=== PATIENT | male | born 1960 | race Caucasian/White ===

== ENCOUNTER 2019-07-28 19:28 | Inpatient (IN) | payer SELFPAY ==
[2019-07-28 20:14] LABS: ABS Eosinophils 0.2 10^3/ul (0-0.6); ABS Lymphocytes 2.8 10^3/ul (1.0-4.8); ABS Monocytes 0.6 10^3/ul (0-0.8); ABS Neutrophils 3.7 10^3/ul (1.5-7.7); Eosinophil % 2.1 %; Hematocrit 44 % (42-52); Hemoglobin 15.3 g/dL (14.0-18.0); Lymphocyte % 38.7 %; Mean Corpuscular HGB Conc 35 g/dL (31-36); Mean Corpuscular Hemoglobin 34 pg (27-31); Mean Corpuscular Volume 98 fL (80-94); Mean Platelet Volume 9.6 fL (7.4-10.4); Nucleated Red Blood Cells % 0.1; Platelet Count 204 10^3/uL (150-450); Red Blood Count 4.49 10^6 /uL (4.18-5.48); Red Cell Distribution Width 13 % (10-15); White Blood Count 7.3 10^3/uL (3.5-10.8)
--- NOTE | 2019-07-28 20:14 | ED ---
Psychiatric Complaint - HPI Summary HPI Summary: This pt is a 59 Y/O M presenting to [facility] accompanied by his daughter after calling the police by himself for a depressive and suicidal episode. Per his daughter the pt was drinking tonight and had too much to drink. He began stating that if he was not brought to [facility] for help he was going to end his life by the morning stating that I want to be out of this world, theres no sense in me being on this earth. He also stated that he would have cut his wrists tonight if he could open his knife. He denies any HI, N/V, fevers, chills , and headaches. He has a SHx of alcoholism per his daughter. 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 - daughter Onset/Duration: Sudden Onset, Still Present Timing: Constant Severity Initially: Severe Severity Currently: Severe Character: Depressed Aggravating Factor(s): Alcohol Use Alleviating Factor(s): Nothing Associated Signs And Symptoms: Positive: Negative - HI, N/V, fevers, chills, and headaches Has Suicidal: Reports: Thoughts, With A Plan Has Homicidal: Denies: Thoughts, With A Plan - Allergies/Home Medications Allergies/Adverse Reactions: Allergies Allergy/AdvReac Type Severity Reaction Status Date / Time chocolate flavor Allergy Rash And Verified 07/28/19 19:32 Itching Home Medications: Home Medications NK [No Home Medications Reported] 07/28/19 [History Confirmed 07/28/19] PMH/Surg Hx/FS Hx/Imm Hx Previously Healthy: Yes Cardiovascular History: Denies: Hx Hypertension Sensory History: Reports: Hx Contacts or Glasses Opthamlomology History: Reports: Hx Contacts or Glasses EENT History: Denies: Hx Hearing Problem - Cancer History Hx Chemotherapy: No Hx Radiation Therapy: No - Surgical History Surgical History: None - Immunization History Immunizations Up to Date: Yes Infectious Disease History: No Infectious Disease History: Denies: Traveled Outside the [place] in Last 30 Days - Family History Known Family History: Negative: Cardiac Disease, Diabetes - Social History Alcohol Use: Daily Hx Substance Use: No Substance Use Type: Reports: None Hx Tobacco Use: Yes Smoking Status (MU): Heavy Every Day Tobacco Smoker Review of Systems Negative: Fever, Chills Negative: Vomiting, Nausea Negative: Headache Psychological: Other - POSITive: SI, NEGATIVE: SI Positive: Depressed All Other Systems Reviewed And Are Negative: Yes Physical Exam - Summary Physical Exam Summary: Appearance: Well-appearing, Well-nourished, lying in bed comfortable. Appears mildly intoxicated Skin: Warm, dry, no obvious rash Eyes: sclera anicteric, no conjunctival pallor ENT: mucous membranes moist Neck: deferred Respiratory: No signs of respiratory distress Cardiovascular: Appears well perfused, pulses are nml Abdomen: deferred Musculoskeletal: Moving all 4 extremities without obvious discomfort Neurological: Awake and alert, mentation is normal, speech is fluent and appropriate Psychiatric: affect is normal, expressing suicidal ideations stating Im done. Triage Information Reviewed: Yes Vital Signs On Initial Exam: Initial Vitals Temp Pulse Resp BP Pulse Ox 97.3 F 73 16 121/78 98 07/28/19 19:30 07/28/19 19:30 07/28/19 19:30 07/28/19 19:30 07/28/19 19:30 Vital Signs Reviewed: Yes Procedures - Sedation Patient Received Moderate/Deep Sedation with Procedure: No Diagnostics - Vital Signs Vital Signs Temp Pulse Resp BP Pulse Ox 07/28/19 19:30 97.3 F 73 16 121/78 98 - Laboratory Result Diagrams: 07/28/19 20:06 07/28/19 20:06 Lab Statement: Any lab studies that have been ordered have been reviewed, and results considered in the medical decision making process. Course/Dx - Course Course Of Treatment: This pt is a 59 Y/O M presenting to [facility] accompanied by his daughter after calling the police by himself for a depressive and suicidal episode. Per his daughter the pt was drinking tonight and had too much to drink. He began stating that if he was not brought to [facility] for help he was going to end his life by the morning stating that I want to be out of this world, theres no sense in me being on this earth. He also stated that he would have cut his wrists tonight if he could open his knife. His PE found that he Appears mildly intoxicated and is currently expressing SI. His labratory results show a serum alcohol level of 152. Pt was medically cleared for a MHE at 2100. Dr. Baltazar, psychiatrist, consulted at 2244 and stated that the pt will be transfered to a different hospital. He was Dx with depression. He will be signed out to Dr. Terry Garcia MD from Dr. Terry Ott MD at shift change 0700 07/29/2019 pending transfer to another psychiatric facility. - Differential Dx/Clinical Impression Provider Diagnosis: Psychosis - Physician Notifications Discussed Care Of Patient With: Mayra Baltazar Time Discussed With Above Provider: 22:45 Instructed by Provider To: Transfer Patient Is Medically Stable For: Psych Evaluation - 2100 Admit/Transition Orders Completed By ED Provider: Yes Discharge ED - Sign-Out/Discharge Documenting (check all that apply): Sign-Out Patient Signing out patient TO: Terry Garcia - Discharge Plan Condition: Stable [place] [place] Disposition and Condition Condition: STABLE Disposition: Psychiatric Facility [facility] - Attestation Statements Document Initiated by Scribe: Yes Documenting Scribe: Mian Stevenson Provider For Whom Scribe is Documenting (Include Credential): Terry Ott MD Scribe Attestation: Mian Londono scribed for Terry Ott MD on 07/29/19 at 1903. Scribe Documentation Reviewed: Yes Provider Attestation: The documentation as recorded by the Mian coats accurately reflects the service I personally performed and the decisions made by Terry aguirre MD Status of Scribe Document: Viewed
[2019-07-28 20:20] LABS: Urine Appearance Clear; Urine Bilirubin Negative (Negative); Urine Blood Negative (Negative); Urine Color Straw; Urine Glucose Negative (Negative); Urine Ketones Negative (Negative); Urine Nitrite Negative (Negative); Urine Protein Negative (Negative); Urine Specific Gravity 1.004 (1.010-1.030); Urine Urobilinogen Negative (Negative)
[2019-07-28 20:32] LABS: Albumin 4.5 g/dL (3.2-5.2); Anion Gap 8 mmol/L (2-11); CO2 Carbon Dioxide 23 mmol/L (22-32); Calcium 9.5 mg/dL (8.6-10.3); Chloride 107 mmol/L (101-111); Sodium 138 mmol/L (135-145)
[2019-07-28 20:38] LABS: ALT 29 U/L (7-52); AST 22 U/L (13-39); Albumin/Globulin Ratio 1.3 (1-3); Alkaline Phosphatase 72 U/L (34-104); BUN/Creatinine Ratio 13.9 (8-20); Blood Urea Nitrogen 14 mg/dL (6-24); EGFR African American 91.8 (>60); EGFR Non-African American 75.9 (>60); Globulin 3.5 g/dL (2-4); Glucose 86 mg/dL (70-100)
[2019-07-28 20:39] LABS: Urine Benzodiazepine Screen None Detected (None Detect); Urine Opiates Screen None Detected (None Detect)
[2019-07-28 20:51] LABS: TSH (Thyroid Stimulating Horm) 2.26 mcIU/mL (0.34-5.60)
[2019-07-28 20:57] LABS: Acetaminophen < 15 mcg/mL; Alcohol 152 mg/dL (<10); Salicylate < 2.50 mg/dL (<30)
[2019-07-28] MEDS ORDERED: Al Hydrox/Mg Hydrox/Simet LIQ* 30 ML UDC PO ONE (22:33)
--- NOTE | 2019-07-29 07:19 | ED ---
Progress - Progress Note Progress Note: This patient was signed out from upon shift change on 07/29/2019 at 0700, awaiting transfer. Pt will be admitted to [facility]-psych instead. Course/Dx - Diagnoses Provider Diagnoses: Psychosis Discharge ED - Sign-Out/Discharge Documenting (check all that apply): Patient Departure - admit - Discharge Plan Condition: Stable Disposition: PSYCHIATRIC FACILITY-[facility] - Billing Disposition and Condition Condition: STABLE Disposition: Psychiatric Facility [facility] - Attestation Statements Document Initiated by Scribe: Yes Documenting Scribe: Waqar Leonard Provider For Whom Arthur is Documenting (Include Credential): Terry Garcia MD Scribe Attestation: Waqar Londono, scribed for Terry Garcia MD on 07/29/19 at 1555. Scribe Documentation Reviewed: Yes Provider Attestation: The documentation as recorded by the Waqar coats accurately reflects the service I personally performed and the decisions made by me, Terry Garcia MD Status of Scribe Document: Viewed
[2019-07-29] MEDS ORDERED: Acetaminophen TAB* 325 MG PO PRN (11:13)
[2019-07-29] MEDS ORDERED: Al Hydrox/Mg Hydrox/Simet LIQ* 30 ML UDC PO PRN (11:13)
[2019-07-29] MEDS ORDERED: hydrOXYzine HCL TAB* 50 MG PO PRN (11:15)
[2019-07-30 08:37] LABS: HDL Cholesterol 58.2 mg/dL
[2019-07-30] MEDS ORDERED: Nicotine* 4MG (FRUIT FLAVOR) GUM PO PRN (17:26)
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
[2019-07-30] MEDS ORDERED: Nicotine Patch Removal NOTE FOLLOW UP SCH (21:00)
[2019-07-31] MEDS ORDERED: Nicotine PATCH 21 MG/24 HR* PATCH TRANSDERM SCH (09:00)
--- NOTE | 2019-07-31 12:21 | DCNOTE ---
Subjective - Subjective Service Types: 12739 Hosp DC Day Mgmt complex over 30 min Discharge Date: 07/31/19 Subjective: Patient continues to report improved mood and denies suicidal ideation or passive wish. He does not recall making suicidal statements. Rouge [employer]er inquired about problems associated with his alcohol use. With motivational interviewing, patient endorses that his significant other often complained about his drinking and that it may have been a factor in her leaving the relationship. He also reports they argued about his lack of work and financial instability. He denies cravings to drink or withdrawal symptoms. He states he would be willing to attempt to abstain from alcohol use "for awhile" and is agreeable to f/u with referral for outpatient MH and substance use treatment. He reports desire to be discharged today. Discharge Planning - Discharge Planning Discharge Plan: Outpatient Follow Up Outpatient Program: [facility], [facility] Recommendations for Continuing Care: Psychotherapy, Substance Abuse Counseling, Primary Care Followup Medications: Current Medications none Discharge Planning: Prescriptions provided for discharge [] Yes [x] No Follow up care details as per social work arrangements: [facility] Primary care Patient response to discharge plan: [x] eager for discharge [x] agreeable with discharge plan [] ambivalent about discharge [] disagrees with discharge today
[2019-07-31 14:15] VITALS: BP 127/78
--- NOTE | 2019-08-01 13:40 | DS ---
CC: Dr. Heike Payne; [facility]; [facility] * DATE OF ADMISSION: 07/29/2019. DATE OF DISCHARGE: 07/31/2019. SUPERVISING PSYCHIATRIST: Dr. Dayron Garcia * (dictated by JOSE Desouza ). DIAGNOSES: Alcohol use disorder, adjustment disorder with disturbance of emotions and conduct, and tobacco use disorder. CONDITION AT THE TIME OF DISCHARGE: Improved. The patient has been denying suicidal ideation since being admitted to the Behavioral Services Unit. He reports improved mood. He does not recall making suicidal statements. We discussed problems associated with alcohol use with motivational interviewing. The patient endorses that his significant other often complained about his drinking and it may have been a factor in her leaving the relationship. He also reports they argued about his lack of work and financial instability. He denies cravings to drink and denies withdrawal symptoms. He states he would be willing to attempt to abstain from alcohol use "for awhile." He is agreeable to follow-up with referrals for outpatient mental health and substance use treatment. He reports the desire to be discharged today. The patient is discharged to home. MENTAL STATUS EXAM: The patient is a 59-year-old white male who appears stated age. He is casually dressed and adequately groomed. His hair is thinning on top, otherwise it is long and dark. He is wearing glasses. He is pleasant upon approach. He is alert and oriented times three. Eye contact is good. Speech is soft and spontaneous. He has poor dentition, therefore he mumbles at times. Concentration is good. Memory is 3/3. Mood is euthymic with a bright affect. No abnormal psychomotor activity noted. Thought process is goal- directed and circumstantial about discharge. Thought content is negative for suicidal ideation or passive wish. He denies auditory or visual hallucinations. There are no perceptual disturbances noted. Insight and judgment are fair, improved. He appears to have approximately average intellect and his fund of knowledge is adequate. DISCHARGE INSTRUCTIONS GIVEN TO THE PATIENT: A. Medications: The patient declined antidepressant or alcohol use disorder medications; therefore, no medicines prescribed at discharge. B. Diet: Regular. C. Activity: Ambulation as tolerated. Tobacco cessation was declined by the patient. There are no pending labs or diagnostic studies. D. Follow-up care: The patient was referred to [facility] and primary care provider, Dr. Heike Miranda Substance use follow-up: Patient referred to [facility] in [place]. HOSPITAL COURSE - PART A: Reason for admission: The patient presented to the emergency department after calling the police due to suicidal ideation. He continued to endorse suicidal ideation while in the emergency department. Chief complaint: "Everything got to me all at once." David is a 59-year-old white male, , tenuously domiciled, and unemployed who presented to the emergency department after calling the police and asking them for help and telling them that he was going to kill himself on the evening of 07/28/2019. According to collateral from his daughter, Danielle, he came to her house that day and had made suicidal statements. At one point, he tried to use his jackknife to cut himself, but could not get it opened. He continued talking about wanting to for two hours and then called the police himself. The police came and the patient was allowed to be transported to the hospital with his daughter. While in the ED, he reported that once they let him out of the hospital he would kill himself "today, tonight, tomorrow, whenever." It should be noted that the patient's alcohol level in the ED was 152. The patient met criteria for admission. Our unit was full at that time, so efforts were made to transfer him to the accepting facility. In the meantime, a bed opened up on our unit on the evening of 07/29/2019 and the patient was admitted on voluntary status. Today, the patient reports that everything got to him all at once. He states that he was notified by his of 33 years that she was leaving him approximately two weeks ago and they have been living in [place], [place]. Her name was the primary lease blackwell for their apartment, so he called the mother of his children in [place], [place], who agreed to let him stay with her and her . Today, he denies making suicidal statements. He minimizes alcohol use and states that he had a few beers before he got to his daughter's house. He reports "feeling a lot better now." According to collateral in the emergency room, the patient had endorsed auditory hallucinations. Today, he tells me that was on Monday morning and that was the only time it ever happened and it was the voices of his late father and brother. He denies depressive episodes. He denies any manic episodes. He reports that he has never had problems with sleep and that he sleeps anywhere from four to five to six to seven hours at night. He denies changes in appetite. He reports current stressors to be obviously sudden discontinuation of his marriage. 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 He states that the relationship with his partner, Faye, of 33 years was going well as far as he knew. HOSPITAL COURSE - PART B: Psychiatric treatment rendered: The patient was admitted to the Adult Behavioral Services Unit on voluntary status. Code status was full. He was placed on 15 minute checks for safety. He was encouraged to participate in supportive milieu, individual sessions with staff, and psychoeducational groups. The patient declined offer to discuss antidepressant medications. He denied symptoms of alcohol withdrawal. Social Work obtained collateral information from his daughter that denotes he is a daily drinker and drinks as much as 30 beers a day. The patient was minimizing of this information. He did agree to be referred for alcohol use treatment and reported considering abstaining from alcohol, especially due to current stressors. The patient advocated for his discharge. He was safe on all checks. He was in behavioral control. He was decreased to 30 minute observation. He was increasingly interactive with unit programming. He slept well. He reported improved mood. He denied suicidal ideation. Due to obligation to treat in least restrictive setting, the patient was discharged by the treatment team. The family was agreeable with discharge plan. DELFINO MCKEON NP [id number]/CPS #: [id number] CARLOS
== END 2019-07-31 18:10 | disposition home or self-care (01) | DRG 882 ==
LOC: ED 19:28 → BSU 07-29 11:13
PROVIDERS: ADMIT Psychiatry & Neurology Psychiatry; ATTEND Psychiatry & Neurology Psychiatry
DX: F43.25 Adjustment disorder with mixed disturbance of emotions and conduct (principal); R45.851 Suicidal ideations; F17.210 Nicotine dependence, cigarettes, uncomplicated; Y90.6 Blood alcohol level of 120-199 mg/100 ml; F10.929 Alcohol use, unspecified with intoxication, unspecified; Z91.018 Allergy to other foods; Z56.0 Unemployment, unspecified
CPT/HCPCS: 36415; 80053; 80061; 80307; 80320; 80329; 81003; 83036; 84443; 85025; 99222; 99238; 99284; A9270-GY; G0480